=== PATIENT | female | born 1965 | race Caucasian/White ===

== ENCOUNTER 2018-04-26 09:15 | Emergency (ER) | payer OTHER | END 2018-04-26 11:16 | disposition home or self-care (01) | LOC: M ED 09:15 | DX: N61.1 Abscess of the breast and nipple (principal); E03.9 Hypothyroidism, unspecified; Z78.0 Asymptomatic menopausal state; Z79.890 Hormone replacement therapy; Z88.0 Allergy status to penicillin | CPT/HCPCS: 76642 ==

== ENCOUNTER → 2018-06-09 | Outpatient (CLI) | payer OTHER ==
[~2018-06-09] MED LIST: KEFL500C17 PO; SYNT100T PO
--- NOTE | 2018-06-16 15:22 | REPMRS ---
Patient History The patient states she has not had a clinical breast exam in over a year. Patient is postmenopausal. Family history of breast cancer in mother, breast cancer in paternal grandmother. Benign left breast biopsy in 1985. Digital Mammo Screening Bilat: June 09, 2018 - Exam #: [id number] Bilateral CC and MLO view(s) were taken. Technologist: Sylvie Gibson, Technologist Prior study comparison: November 22, 2015, bilateral digital woman screen mammo, [facility]. April 28, 2013, bilateral digital woman screen mammo, performed at [place]. FINDINGS: The breast tissue is heterogeneously dense. This may lower the sensitivity of mammography. There is a moderate amount of heterogeneously dense fibroglandular tissue which is fairly symmetric. There is no interval development of dominant mass, architectural distortion, or clustered microcalcification typical of malignancy. There has been no change in the appearance of the mammogram from the prior studies. Assessment: BI-RADS/ACR category 1 mammogram. Negative Mammogram. Recommendation Breast MRI of both breasts in 6 months. Routine screening mammogram of both breasts in 1 year (for women over age 40). This patient's Lifetime Breast Cancer RIsk is estimated at 21.1 %. Annual screening Breast MRI scanniing is recommended for patient's whose lifetime risk assessment is over 20%. This mammogram was interpreted with the aid of an FDA-approved computer-aided dectection system. Electronically Signed By: Evans Ndiaye MD 06/16/18 [id number]
== END ==
LOC: M RAD 08:15
PROVIDERS: ATTEND Family Medicine
DX: Z12.31 Encounter for screening mammogram for malignant neoplasm of breast (principal); Z80.3 Family history of malignant neoplasm of breast; Z78.0 Asymptomatic menopausal state; N60.31 Fibrosclerosis of right breast; N60.32 Fibrosclerosis of left breast

== ENCOUNTER → 2019-01-04 | Outpatient (CLI) | payer OTHER ==
[~2019-01-04] MED LIST changes: +PROHANCE 279.3MG/ML 15ML VIAL (A9576) As Ordered ONE
--- NOTE | 2019-01-04 15:32 | REP ---
MRI BILATERAL BREASTS WITH AND WITHOUT CONTRAST: COMPARISON: Mammogram 06/09/2018 [facility]. Lifetime risk of breast cancer 21.1%. TECHNIQUE: Multiple sequences obtained in the axial, coronal and sagittal planes prior to and following the intravenous administration of 14.4 mL ProHance. Images are evaluated in the [employer] software including dynamic post IV gadolinium axial T1 FS images, subtraction images, color overlay images, CAD images and MIP reconstruction images. There is a moderate amount of breast parenchyma symmetrically bilaterally. Multiple subcentimeter cysts are scattered throughout the both breasts. Normal axillary lymph nodes are present without evidence of axillary adenopathy. No suspicious area of enhancement or enhancing mass is seen. There is no morphological abnormality. IMPRESSION: BI-RADS category 2 benign bilateral breast MRI. Multiple subcentimeter cysts are seen bilaterally without evidence of suspicious mass or morphological abnormality. Yearly supplemental screening MRI of the breast is recommended for patient's with lifetime risk of breast cancer 20% or greater. Electronically Signed by Slava Hu MD 01/05/2019 12:12 A
== END ==
LOC: M RAD 12:22
PROVIDERS: ATTEND Nurse Practitioner Primary Care
DX: Z12.31 Encounter for screening mammogram for malignant neoplasm of breast (principal)
CPT/HCPCS: A9576; C8908

== ENCOUNTER 2021-11-18 21:43 | Emergency (ER) | payer OTHER ==
[~2021-11-18 21:43] MED LIST changes: -PROHANCE 279.3MG/ML 15ML VIAL (A9576) As Ordered ONE
[2021-11-18 22:08] LABS: BASO % 0.4 % (0.0-1.0); EOS # 0.1 10^3/uL (0.0-0.5); EOS % 1.4 % (0.0-3.0); HEMATOCRIT 37.6 % (36.0-47.0); HEMOGLOBIN 12.5 g/dl (12.0-15.5); LYMPH # 0.9 10^3/uL (1.5-5.0); MEAN CORPUSCULAR HEMOGLOBIN 29.3 pg (27.0-33.0); MEAN CORPUSCULAR HGB CONC 33.2 g/dl (32.0-36.5); MEAN CORPUSCULAR VOLUME 88.1 fl (80.0-96.0); MONO # 0.5 10^3/uL (0.0-0.8); MONO % 8.4 % (2.0-8.0); NEUTROPHILS # 4.1 10^3/uL (1.5-8.5); NEUTROPHILS % 73.4 % (36.0-66.0); PLATELET COUNT, AUTOMATED 239 10^3/uL (150-450); RED BLOOD COUNT 4.27 10^6/uL (4.00-5.40); WHITE BLOOD COUNT 5.6 10^3/uL (4.0-10.0)
[2021-11-18 22:40] LABS: BLOOD UREA NITROGEN 18 MG/DL (7-18); CALCIUM LEVEL 8.9 MG/DL (8.5-10.1); CARBON DIOXIDE LEVEL 28 MEQ/L (21-32); CHLORIDE LEVEL 105 MEQ/L (98-107); CREATININE FOR GFR 0.88 MG/DL (0.55-1.30); GLOMERULAR FILTRATION RATE > 60.0 (>51); GLUCOSE, FASTING 118 MG/DL (70-100); NT-PRO BNP 61 PG/ML (<125); POTASSIUM SERUM 3.7 MEQ/L (3.5-5.1); SODIUM LEVEL 135 MEQ/L (136-145)
[2021-11-18 23:33] LABS: CK-MB VALUE MASS 1.4 NG/ML (<3.6); CPK CREATINE PHOSPHOKINASE 106 U/L (26-192); MB/CK RELATIVE INDEX 1.32 (< OR =4)
[2021-11-19] LABS: CK-MB VALUE MASS 1.4 NG/ML (<3.6); MB/CK RELATIVE INDEX 1.18 (< OR =4)
[2021-11-19 00:37] VITALS: BP 120/72
== END 2021-11-19 00:40 | disposition left against medical advice (07) ==
LOC: M ED 21:43
DX: Z53.21 Procedure and treatment not carried out due to patient leaving prior to being seen by health care provider (principal)

== ENCOUNTER → 2022-03-05 | Outpatient (CLI) | payer OTHER | LOC: M WHC 14:17 | PROVIDERS: ATTEND Student in an Organized Health Care Education/Training Program | DX: Z12.31 Encounter for screening mammogram for malignant neoplasm of breast (principal) ==

== ENCOUNTER → 2023-03-23 | Outpatient (CLI) | payer OTHER ==
[~2023-03-23] MED LIST changes: +ISOVUE-370 76% 100ML VIAL As Ordered ONE; +SYNT112T2 PO
== END ==
LOC: M RAD 13:47
PROVIDERS: ATTEND Nurse Practitioner Family
DX: N28.89 Other specified disorders of kidney and ureter (principal); R91.8 Other nonspecific abnormal finding of lung field; N28.9 Disorder of kidney and ureter, unspecified
CPT/HCPCS: 71260; 74178; Q9967

== ENCOUNTER 2023-03-27 09:21 | Day surgery (SDC) | payer OTHER ==
[~2023-03-27] VITALS: Ht 172.7 cm; Wt 71.7 kg
[~2023-03-27 09:21] MED LIST changes: -ISOVUE-370 76% 100ML VIAL As Ordered ONE; +NS 1,000 ML IV ONE
[2023-03-27] MEDS ORDERED: propofoL 200 MG/20 ML VIAL As Ordered ONE (12:35)
[2023-03-27] MEDS ORDERED: LIDOCAINE 2% 100MG/5ML SDV (FOR ANES.) As Ordered ONE (12:35)
[2023-03-27 13:31] VITALS: BP 127/65; O2SAT 100
== END 2023-03-27 13:48 | disposition home or self-care (01) ==
LOC: M OPP 09:21
PROVIDERS: ATTEND Surgery
DX: K57.30 Diverticulosis of large intestine without perforation or abscess without bleeding (principal); K64.8 Other hemorrhoids

== ENCOUNTER → 2024-04-06 | Outpatient (CLI) | payer OTHER ==
[~2024-04-06] MED LIST changes: -NS 1,000 ML IV ONE
== END ==
LOC: M WHC 12:54
PROVIDERS: ATTEND Physician Assistant Medical
DX: Z12.31 Encounter for screening mammogram for malignant neoplasm of breast (principal)